=== PATIENT | female | born 2000 | race Caucasian/White ===

== ENCOUNTER 2023-07-12 00:34 | Emergency (ER) | payer MEDICAID ==
[~2023-07-12] VITALS: Ht 154.9 cm; Wt 49.0 kg
[2023-07-12 00:47] VITALS: BP_SYST 112; PULSE 95; RESP 16; TEMP 98.5; O2SAT 100
[2023-07-12 02:55] LABS: BILIRUBIN,URINE 1+ (NEGATIVE); BLOOD, URINE NEGATIVE (NEGATIVE); COLOR,URINE YELLOW (YELLOW); GLUCOSE,URINE NEGATIVE (NEGATIVE); KETONES,URINE 1+ (NEGATIVE); NITRITE, URINE NEGATIVE (NEGATIVE); PROTEIN URINE TRACE (NEGATIVE)
[2023-07-12 03:15] LABS: CLARITY/URINE SLIGHTLY CLOUDY (CLEAR); LEUKOCYTE ESTERASE ,URINE 1+ (NEGATIVE)
[2023-07-12 03:17] LABS: BACTERIA,URINE MODERATE /HPF (None Seen); RBC,URINE 0-3 /HPF (0-3); WBC,URINE 20-50 /HPF (0-3)
[2023-07-12] MEDS: cefTRIAXone 1 GM in LIDOCAINE 1%, 20 ML MDV 2.1 ML IM ONE (03:50)
[2023-07-12] MEDS ORDERED: CIPR500T5 PO (04:24)
[2023-07-12 04:36] VITALS: BP_SYST 112; PULSE 95; RESP 16; TEMP 98.5; O2SAT 100
== END 2023-07-12 04:34 | disposition home or self-care (01) ==
LOC: SED 00:34
DX: N39.0 Urinary tract infection, site not specified (principal); Z88.1 Allergy status to other antibiotic agents
CPT/HCPCS: 99283; 81000; 81001; 87086; 81025; 96372; 81015; J0696; J2001